=== PATIENT | female | born 1985 | race Caucasian/White ===

== ENCOUNTER 2018-06-23 10:15 | Emergency (ER) | payer MEDICAID, OTHER ==
[~2018-06-23] VITALS: Ht 160 cm; Wt 79.4 kg
[2018-06-23 10:15] VITALS: BP 134/83
--- NOTE | 2018-06-23 11:12 | NUR ---
APPLIED RIGHT ARM SLING. Patient discharged to home in stable condition. Written and verbal after care instructions given. Patient verbalizes understanding of instruction.
== END 2018-06-23 11:13 | disposition home or self-care (01) ==
LOC: ER 10:25
DX: M25.511 Pain in right shoulder (principal)

== ENCOUNTER 2021-02-10 13:26 | Emergency (ER) | payer OTHER ==
[~2021-02-10] VITALS: Ht 165.1 cm; Wt 77.1 kg
--- NOTE | 2021-02-10 14:19 | NUR ---
Patient came in to the er c/o Headache x 2 days. "I feel lumps on my forehead". On room air, connected to the monitor and pulse ox. kept comfortable, will continue to monitor accordingly.
[2021-02-10 14:25] LABS: BILIRUBIN,URINE Negative (NEGATIVE); COLOR,URINE YELLOW (YELLOW); LEUKOCYTE ESTERASE ,URINE Negative (NEGATIVE); NITRITE, URINE Negative (NEGATIVE); PH,URINE 5.5 (5.0-8.0); PROTEIN,URINE Negative (NEGATIVE); UGLUCOSE Negative (NEGATIVE); UROBILINOGEN,URINE 0.2 EU/dL (0.2)
[2021-02-10] MEDS ORDERED: TRIA80OI TP (15:28)
[2021-02-10] MEDS ORDERED: NAPR-1164 PO (15:28)
[2021-02-10 16:07] VITALS: BP 135/81
--- NOTE | 2021-02-10 16:07 | NUR ---
Patient discharged to home in stable condition. Written and verbal after care instructions given. Patient verbalizes understanding of instruction.IV removed. Catheter intact and site benign. Pressure and 4x4 applied to site. No bleeding noted.
== END 2021-02-10 16:07 | disposition home or self-care (01) ==
LOC: ER 13:28
DX: R51.9 Headache, unspecified (principal); R21 Rash and other nonspecific skin eruption
CPT/HCPCS: 36415; 70450-TC; 84702-TC

== ENCOUNTER 2022-07-25 10:02 | Emergency (ER) | payer OTHER ==
[~2022-07-25] VITALS: Ht 165.1 cm; Wt 63.5 kg
[~2022-07-25 10:02] MED LIST: NAPR-1164 PO; TRIA80OI TP
[2022-07-25 10:19] VITALS: BP 112/75
--- NOTE | 2022-07-25 10:24 | NUR ---
Urine sample obtained
[2022-07-25 11:23] LABS: BILIRUBIN,URINE NEGATIVE (NEGATIVE); COLOR,URINE DARK YELLOW (YELLOW); LEUKOCYTE ESTERASE ,URINE 2+ (NEGATIVE); NITRITE, URINE POSITIVE (NEGATIVE); PROTEIN,URINE NEGATIVE (NEGATIVE); UGLUCOSE TRACE mg/dL (NEGATIVE)
[2022-07-25 11:25] LABS: BACTERIA,URINE Few /HPF (None Seen); SQUAMOUS EPITHELIAL CELL,UR Many /HPF (None Seen)
[2022-07-25] MEDS ORDERED: CEPH500C2 PO (11:34)
== END 2022-07-25 11:42 | disposition home or self-care (01) ==
LOC: ER 10:12
DX: N39.0 Urinary tract infection, site not specified (principal)
CPT/HCPCS: 81001; 87086-TC